=== PATIENT | female | born 1995 | race Caucasian/White ===

== ENCOUNTER 2016-08-10 02:10 | Inpatient (IN) | payer OTHER ==
[2016-08-10] MEDS ORDERED: BUTORPHANOL TARTRATE 1 MG/ML VIAL IVPB ONE (03:00)
[2016-08-10] MEDS ORDERED: PROMETHAZINE HCL 25 MG/1 ML VIAL IVPB ONE (03:00)
[2016-08-10] MEDS ORDERED: DEXTROSE 5%-LACTATED RINGERS 1,000 ML IV SCH (03:00)
[2016-08-10] MEDS ORDERED: AMPICILLIN 2 GM/100 ML BAG (PRE-DOCKED) IVPB ONE (03:00)
[2016-08-10 03:53] LABS: BASOPHIL 0.3 % (0-2.0); EOSINOPHIL 1.8 % (0-4.5); MCH 28.8 pg (25.7-33.7); MCHC 32.4 g/dl (32.0-36.0); MEAN PLT VOLUME 9.1 fl (7.5-11.1); NEUTROPHILS 74.3 % (42.8-82.8); PLATELET COUNT 250 K/MM3 (134-434); RDW 13.9 % (11.6-15.6); WHITE BLOOD COUNT 12.4 K/mm3 (4.0-10.0)
[2016-08-10 04:06] LABS: INR 0.92 (0.82-1.09); PROTHROMBIN TIME (PATIENT) 10.1 SEC (9.98-11.88)
[2016-08-10 04:08] LABS: ACTIVATED PTT 28.4 SECONDS (26.9-34.4)
[2016-08-10 04:22] LABS: CALCIUM 8.4 mg/dL (8.5-10.1); CREATININE 0.4 mg/dL (0.55-1.02)
[2016-08-10] MEDS ORDERED: DEXTROSE 5%-LACTATED RINGERS 1,000 ML IV ONE (06:34)
[2016-08-10] MEDS: AMPICILLIN (PRE-DOCKED) 1 GM/100 ML BAG IVPB SCH ×2 (07:20→11:20)
--- NOTE | 2016-08-10 09:00 | HP ---
Past Medical History - Primary Care Physician PCP:: [facility] - Admission Chief Complaint: c/o painful contractions starting at 10pm 08/09 History of Present Illness: 20 @ 39wk6d in early labor. +painful contractions q3-4 minutes, no LOF, no VB, +FM. GBS positive. Maternal blood type O+, RPR neg, Rubella Immune, HepBsAg NR, Quant Neg, HIV NR. 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: Alzheimer's, CVA, Dementia, Migraine, Multiple Sclerosis, Peripheral Neuropathy, Parkinson's, Seizure, Syncope, TIA, Vertigo, Other Cardiovascular: No: AFIB, Aneurysm, Aortic Insufficiency, Aortic Stenosis, CAD, CHF, Deep Vein Thrombosis, HTN, Hyperlipdemia, PR, Mitral Insufficiency, Mitral Stenosis, Murmur, Pulmonary Hypertension, Other Pulmonary: No: Asthma, Bronchitis, Cancer, COPD, O2 Dependent, Pneumonia, Previously Intubated, Pulmonary Embolus, Pulmonary Fibrosis, Sleep Apnea, Other Gastrointestinal: No: Ascites, Cancer, Constipation, Crohn's Disease, Diverticulitis, Diverticulosis, Esophageal Varices, Gastritis, GERD, GI Bleed, Hemorrhoids, Hiatal Hernia, Inflamatory Bowel Disease, Irritable Bowel Disease, Pancreatitis, Peptic Ulcer Disease, Ulcerative Colitis, Other Hepatobiliary: No: Cirrhosis, Cholelithiasis, Cholecystitis, Choledocholithiasis , Hepatitis A, Hepatitis B, Hepatitis C, Other Renal/: No: Renal Failure, Renal Inusuff, BPH, Cancer, Hematuria, Hemodialysis , Neurogenic Bladder, Renal Calculi, UTI, Other Reproductive: No: Ectopic , Endometriosis, Fibroids, PID, Polycystic Ovary Syndrome, Postmenopausal, Other ...: 2 ...Para: 1 ...Term: 1 ...: 0 ...Spon : 0 ...Induced : 0 ...Multiple Gestation: 0 ...LMP: 11/05/15 ... Weeks Gestation by Dates: 39.4 ...EDC by Dates: 08/13/16 ...EDC by Sono: 08/11/16 Heme/Onc: No: Anemia, B12 Deficiency, Bleeding Disorder, Cancer, Current Chemotherapy, Current Radiation Therapy, Hemochromatosis, Hypercoaguable State, Myeloproliferative Synd, Sickle Cell Disease, Sickle Cell Trait, Thrombocytopenia, Other Infectious Disease: No: AIDS, C-Diff, Herpes Zoster, HIV, MRSA, STD's, Tuberculosis, VREF, Other Psych: No: Addictions, Anxiety, Bipolar, Depression, Panic, Psychosis, Schizophrenia, Other Musculoskeletal: No: Bursitis, Chronic low back pain, Hemiparesis, Hemiplegia, Osteoarthritis, Paraplegia, Other Rheumatology: No: Fibromyalgia, Gout, Lupus, Rheumatoid Arthritis, Sarcoidosis, Vasculitis, Other Endocrine: No: Crane's Disease, Free Soil's Disease, Diabetes Insipidus, Diabetes Mellitus, Hyperparathyroidism, Hyperthyroidism, Hypothyroidism, Osteopenia, SIADH, Other Dermatology: No: Basal Cell, Cellulitis, Eczema, Melanoma, Psoriasis, Squamous Cell, Other - Past Surgical History Past Surgical History: Yes: None Hx Myomectomy: No Hx Transabdominal Cerclage: No - Smoking History Smoking history: Never smoked Aproximately how many cigarettes per day: 0 - Alcohol/Substance Use Hx Alcohol Use: No History of Substance Use: reports: None Home Medications - Allergies Allergies/Adverse Reactions: Allergies Allergy/AdvReac Type Severity Reaction Status Date / Time No Known Drug Allergies Allergy Verified 06/06/16 18:52 PEPPERS Allergy Hives Uncoded 06/06/16 18:52 - Home Medications Home Medications: Ambulatory Orders Vit/Iron Fumarate/FA [ Tablet] 1 tablet PO DAILY 06/30/16 Review of Systems - Review of Systems Constitutional: reports: No Symptoms Eyes: reports: No Symptoms HENT: reports: No Symptoms Neck: reports: No Symptoms Cardiovascular: reports: No Symptoms Respiratory: reports: No Symptoms Gastrointestinal: reports: Other (uterine contractions) Genitourinary: reports: No Symptoms Breasts: reports: No Symptoms Reported Musculoskeletal: reports: No Symptoms Integumentary: reports: No Symptoms Neurological: reports: No Symptoms Endocrine: reports: No Symptoms Hematology/Lymphatic: reports: No Symptoms Psychiatric: reports: No Symptoms Physical Exam - Maternity Vital Signs: Vital Signs Temperature 98.0 F 08/10/16 08:00 Pulse Rate 85 08/10/16 08:00 Respiratory Rate 20 08/10/16 08:00 Blood Pressure 124/80 08/10/16 08:00 O2 Sat by Pulse Oximetry (%) Constitutional: Yes: Well Nourished Eyes: Yes: WNL HENT: Yes: WNL, Atraumatic, Normocephalic Neck: Yes: WNL Cardiovascular: Yes: WNL, Regular Rate and Rhythm Lungs: Clear to auscultation Breast(s): Yes: WNL - Abdominal Exam/OB Fundal Height: 40 Number of Fetuses: Single Presentation: Vertex Contractions: Yes Regularity: Regular Intensity: Moderate Monitor Mode: External Heart Rate (range): 130 Category: I Accelerations: Uniform Decelerations: None - Vaginal Exam/OB Vaginal Bleediing: No Speculum Exam: No Dilatation (cm): 1.5 Effacement (%): 60 Amniotic Membrane Status: Intact Meconium: Light Presentation: Vertex/Position Station: -3 - Physical Exam Edema: No Integumentary: Yes: WNL Deep Tendon Reflex Grade: Normal +2 ...Motor Strength: WNL Psychiatric: Yes: WNL - Labs Lab Results: CBC, BMP 08/10/16 03:36 08/10/16 03:36 Problem List - Problems (1) 39 weeks gestation of Code(s): Z3A.39 - 39 WEEKS GESTATION OF Assessment/Plan 20 @ 39wk6d in early labor. GBS positive, intact. Feeling painful contractions q3 min. status reassuring, cat 1 FHT. VSS. AF. -Admit to L&D -[facility]/[place] -CBC/T&S -Amp for GBS ppx -anesthesia on request -anticipate
[2016-08-10] MEDS ORDERED: ELECTROLYTE-148 SOLN 1,000 ML IV SCH (09:30)
--- NOTE | 2016-08-10 09:35 | PN ---
Progress Note, Labor Vaginal Exam #1 Labor Exam Date: 08/10/16 Labor Exam Time: 08:30 Heart Rate (range): Cat 1 Dilatation: 3.5 Effacement (%): 80 Amniotic Membrane Status: Intact Presentation: Vertex/Position Station: -2 Remarks: 20 @ 39wk6d in early labor. c/o SOB and feeling diaphoretic after epidural. Assessed by anesthesia, given ephedrine for hypotension, BP 90/57. HR 97. 02 sat 100%. status reassuring, cat 1 FHT, baseline 135, +acel, no decel, + contractions q3-4 min. Getting IV Fluids. -continue to monitor -monitor vital signs -pitocin if contractions space out -anticipate
[2016-08-10] MEDS ORDERED: OXYTOCIN 15 UNITS/ LR 250 ML 250 ML IVPB SCH (09:45)
[2016-08-10] MEDS ORDERED: FENTANYL/BUPIVACAINE/NS/PF - PCEA - 50 ML DISP.SYRIN EP SCH (10:00)
--- NOTE | 2016-08-10 12:29 | PN ---
Progress Note, Labor Vaginal Exam #2 Labor Exam Date: 08/10/16 Labor Exam Time: 12:24 Heart Rate (range): Cat 1 Dilatation: 4 Effacement (%): 80 Amniotic Membrane Status: Ruptured (clear fluid) Presentation: Vertex/Position Station: -2 Remarks: 20 @ 39wk6d in early labor, on 4mu pitocin. s/p epidural, comfortable. AROM , clear fluid. Variable decel on AROM, 1 min down to 100, with spontaneous return to baseline. Overall cat 1 FHT, status reassuring. VSS. AF. -cont to monitor -titrate pitocin per protocol -anticipate
--- NOTE | 2016-08-10 13:20 | PN ---
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 Head delivered followed by body, no nuchal cord noted. 's 9/9. Placenta delivered spontaneously without difficulty. EBL 200cc.
[2016-08-10] MEDS ORDERED: BENZOCAINE 28 GM HEMORRHOIDAL OINTMENT TP PRN (13:21)
[2016-08-10] MEDS ORDERED: BISACODYL 10 MG SUPP.RECT RC PRN (13:21)
[2016-08-10] MEDS ORDERED: METHYLERGONOVINE MALEATE 0.2 MG/1 ML AMP IM PRN (13:21)
[2016-08-10] MEDS ORDERED: BENZOCAINE 20% 57 GM BOTTLE TP PRN (13:21)
[2016-08-10] MEDS ORDERED: WITCH HAZEL 50% (TUCKS) 40 PAD/JAR PAD TP PRN (13:21)
[2016-08-10] MEDS ORDERED: D5W-LR W/ 20 UNITS OXYTOCIN 1,000 ML IV SCH (13:30)
[2016-08-10] MEDS: IBUPROFEN 600 MG TABLET (FP) PO PRN ×2 (14:35→21:02)
[2016-08-10] MEDS: ACETAMINOPHEN 325 MG TABLET (FP) PO PRN ×2 (14:35→21:02)
--- NOTE | 2016-08-11 07:21 | PN ---
Post Progress Note - Subjective Subjective: Doing well, c/o mild cramps when . Ambulating, voiding, tolerating PO. Denies SOB/CP/Dizziness Type of Delivery: Vital Signs: Vital Signs Temperature 97.6 F 08/11/16 06:43 Pulse Rate 83 08/11/16 06:43 Respiratory Rate 20 08/11/16 06:43 Blood Pressure 117/69 08/11/16 06:43 O2 Sat by Pulse Oximetry (%) 100 08/10/16 13:00 Breast Exam: Yes: Soft Uterus: Yes: Fundus below umbilicus Abdomen/GI: Yes: Abdomen soft, Passing flatus Lochia: Yes: Rubra Lochia, amount: Small Extremities: Yes: Calves non-tender Perineum: Yes: Intact Activity: Ambulating - Labs Labs: CBC WBC 12.4 K/mm3 (4.0-10.0) H 08/10/16 03:36 RBC 4.12 M/mm3 (3.60-5.2) 08/10/16 03:36 Hgb 11.9 GM/dL (10.7-15.3) 08/10/16 03:36 Hct 36.7 % (32.4-45.2) 08/10/16 03:36 MCV 89.0 fl (80-96) 08/10/16 03:36 MCHC 32.4 g/dl (32.0-36.0) 08/10/16 03:36 RDW 13.9 % (11.6-15.6) 08/10/16 03:36 Plt Count 250 K/MM3 (134-434) 08/10/16 03:36 MPV 9.1 fl (7.5-11.1) 08/10/16 03:36 Neutrophils % 74.3 % (42.8-82.8) 08/10/16 03:36 Lymphocytes % 16.1 % (8-40) D 08/10/16 03:36 Monocytes % 7.5 % (3.8-10.2) 08/10/16 03:36 Eosinophils % 1.8 % (0-4.5) D 08/10/16 03:36 Basophils % 0.3 % (0-2.0) 08/10/16 03:36 Problem List - Problems (1) 39 weeks gestation of Code(s): Z3A.39 - 39 WEEKS GESTATION OF (2) Normal spontaneous vaginal delivery Code(s): O80 - ENCOUNTER FOR FULL-TERM UNCOMPLICATED DELIVERY Assessment/Plan 20P2 PPD#1 s/p , doing well . VSS, AF, Hct stable -Regular diet -ambulate -motrin prn pain -routine care -anticipate d/c PPD#2
[2016-08-11 07:28] LABS: BASOPHIL 0.3 % (0-2.0); EOSINOPHIL 1.5 % (0-4.5); MCH 30.3 pg (25.7-33.7); MCHC 33.5 g/dl (32.0-36.0); MEAN CELL VOLUME 90.4 fl (80-96); NEUTROPHILS 75.3 % (42.8-82.8); PLATELET COUNT 198 K/MM3 (134-434); RDW 14.3 % (11.6-15.6); WHITE BLOOD COUNT 12.3 K/mm3 (4.0-10.0)
[2016-08-11] MEDS ORDERED: INFLUENZA VACCINE 45 MCG/0.5 ML (MDV 16-17) IM ONE (10:00)
[2016-08-11] MEDS ORDERED: VACCINE 60 MCG/0.5 ML (P/F DISP.SYRIN 16-17) IM ONE (10:00)
[2016-08-11] MEDS ORDERED: DIPHTH,PERTUSS(ACELL),TET 0.5 ML DISP.SYRIN IM ONE (10:00)
[2016-08-11] MEDS: ACETAMINOPHEN 325 MG TABLET (FP) PO PRN ×2 (10:15→21:56)
[2016-08-11] MEDS: IBUPROFEN 600 MG TABLET (FP) PO PRN ×2 (10:15→21:56)
[2016-08-11] MEDS ORDERED: SENNOSIDES/DOCUSATE COMBO (SENNA PLUS) TABLET (UD) PO PRN (22:00)
[2016-08-12] MEDS: ACETAMINOPHEN 325 MG TABLET (FP) PO PRN (04:53)
[2016-08-12] MEDS: IBUPROFEN 600 MG TABLET (FP) PO PRN (04:54)
--- NOTE | 2016-08-12 09:49 | PN ---
Post Progress Note - Subjective Subjective: Doing well, no complaints. Denies SOB/CP/Dizziness. Tolerating regular diet, ambulating, voiding. Post Day: 2 Type of Delivery: Vital Signs: Vital Signs Temperature 97.8 F 08/11/16 22:00 Pulse Rate 88 08/11/16 22:00 Respiratory Rate 20 08/11/16 22:00 Blood Pressure 117/71 08/11/16 22:00 O2 Sat by Pulse Oximetry (%) 100 08/10/16 13:00 Breast Exam: Yes: Soft Uterus: Yes: Fundus Firm, Fundus below umbilicus Abdomen/GI: Yes: Abdomen soft, Passing flatus Lochia: Yes: Rubra Lochia, amount: Small Extremities: Yes: Calves non-tender Perineum: Yes: Intact Activity: Ambulating - Labs Labs: CBC WBC 12.3 K/mm3 (4.0-10.0) H 08/11/16 05:50 RBC 3.74 M/mm3 (3.60-5.2) 08/11/16 05:50 Hgb 11.3 GM/dL (10.7-15.3) 08/11/16 05:50 Hct 33.8 % (32.4-45.2) 08/11/16 05:50 MCV 90.4 fl (80-96) 08/11/16 05:50 MCHC 33.5 g/dl (32.0-36.0) 08/11/16 05:50 RDW 14.3 % (11.6-15.6) 08/11/16 05:50 Plt Count 198 K/MM3 (134-434) D 08/11/16 05:50 MPV 9.0 fl (7.5-11.1) 08/11/16 05:50 Neutrophils % 75.3 % (42.8-82.8) 08/11/16 05:50 Lymphocytes % 16.4 % (8-40) 08/11/16 05:50 Monocytes % 6.5 % (3.8-10.2) 08/11/16 05:50 Eosinophils % 1.5 % (0-4.5) 08/11/16 05:50 Basophils % 0.3 % (0-2.0) 08/11/16 05:50 Problem List - Problems (1) 39 weeks gestation of Code(s): Z3A.39 - 39 WEEKS GESTATION OF (2) Normal spontaneous vaginal delivery Code(s): O80 - ENCOUNTER FOR FULL-TERM UNCOMPLICATED DELIVERY Assessment/Plan 20P2 PPD#2 s/p , doing well . VSS, AF, Hct stable -Regular diet -ambulate -motrin prn pain -routine care -d/c home today
--- NOTE | 2016-08-12 09:50 | DS ---
Physical Exam-STAFFING PROGRAM MANAGER Vital Signs: Vital Signs Temperature 97.8 F 08/11/16 22:00 Pulse Rate 88 08/11/16 22:00 Respiratory Rate 20 08/11/16 22:00 Blood Pressure 117/71 08/11/16 22:00 O2 Sat by Pulse Oximetry (%) 100 08/10/16 13:00 Constitutional: Yes: Well Nourished Eyes: Yes: WNL HENT: Yes: WNL, Atraumatic, Normocephalic Neck: Yes: WNL Cardiovascular: Yes: WNL, Regular Rate and Rhythm Respiratory: Yes: WNL, Regular, CTA Bilaterally Gastrointestinal: Yes: WNL ...Rectal Exam: Yes: WNL Renal/: Yes: WNL Pelvis: Yes: WNL External Genitalia: Yes: Normal Uterus: Yes: Normal ....Post : Yes: Uterus firm, Uterus non-tender Extremities: Yes: WNL Edema: No Integumentary: Yes: WNL Neurological: Yes: WNL Labs: CBC, BMP 08/11/16 05:50 08/10/16 03:36 Delivery - Delivery Vaginal Delivery: No Problems Type of Anesthesia: Epidural Episiotomy/Laceration: None EBL (cc): 200 Delivery, Single - Stages of Labor Date 1st Stage Initiatied: 08/09/16 Time 1st Stage Initiated: 22:00 Date 2nd Stage Initiated: 08/10/16 Time 2nd Stage Initiated: 12:55 Date of Delivery: 08/10/16 Time of Delivery: 13:02 Time Placenta Delivered: 13:10 Placenta: Yes: Spontaneous - Condition of Topographical Engineer/Med Surg Rn Present: No Infant Gender: Female Weight: 6 lb 12 oz Position: Right, OA Total Hours ROM (Hrs/Mins): 50MIN - 1 Minute Total Score: 9 5 Minutes Total Score: 9 - [place] Feeding Plan Initial Plan: Exclusive throughout hospitalization Remarks - Remarks Remarks: Live famale delivered in the JODIE position over intact perineum. Head delivered followed by body, no nuchal cord noted. 's 9/9. Placenta delivered spontaneously without difficulty. EBL 200cc. course uneventful. Discharged home PPD#2, with follow up in the clinic at [address] [place] [address] in 6 weeks Discharge Summary Reason For Visit: LABOR ADMIT Current Active Problems 39 weeks gestation of (Acute) Normal spontaneous vaginal delivery (Acute) Condition: Good - Instructions Diet, Activity, Other Instructions: Post Instructions DIET: Continue good diet high in protein, calcium, and iron rich foods. Drink at least eight (8) glasses of water daily in addition to other fluids. ___ Regular diet MEDICATIONS: Continue vitamins and iron as previously directed. Motrin and Tylenol may be taken for minor discomfort. ACTIVITY: Mild to moderate exercise may be started in two (2) weeks. Take frequent rest periods. Resume normal activity after six (6) week check up. WOUND CARE OF OPERATIVE SITE: Continue use of perineal bottle until vaginal discharge stops. Keep area clean. Shower daily. Keep abdominal wound dry. Report any drainage or redness to physician. Tub baths, tampons and douches are not permitted for 6 weeks. ____ Breast feeding ___ Bottle feeding BREAST CARE: (For those that are not ): If engorgement occurs: Wear tight fitting bra. Take Tylenol or Motrin for pain. Apply cold packs (ice in bags to each breast ) FAMILY PLANNING: There are many control alternatives to pursue and they should be discussed at your first office visit. You may resume sexual activity after your six (6) week check up. (Remember, is not a contraceptive) NEXT PHYSICIAN APPOINTMENT: Be certain to call [facility] Care for a six (6) week appointment. Call Clinic or got to Emergency Dept if you have any of the following: Heavy vaginal bleeding Painful urination Leg pain Unusual odor noted to vaginal bleeding High fever Red streaking noted on breast Referrals: Emelyn Rose MD [Staff Physician] - Disposition: HOME - Home Medications Comprehensive Discharge Medication List: Ambulatory Orders Vit/Iron Fumarate/FA [ Tablet] 1 tablet PO DAILY 06/30/16
[2016-08-12 10:58] VITALS: BP 100/64; PULSE 78; TEMP 98
== END 2016-08-12 13:00 | disposition home or self-care (01) | DRG 560 ==
LOC: JDEL 02:10 → JLDR 03:00 → J3W 15:00
PROVIDERS: ADMIT Obstetrics & Gynecology; ATTEND Obstetrics & Gynecology
PROC: 10E0XZZ Delivery of Products of Conception, External Approach (ICD-10-PCS; principal; 2016-08-10)
DX: O76 Abnormality in fetal heart rate and rhythm complicating labor and delivery (principal); O99.824 Streptococcus B carrier state complicating childbirth; Z3A.39 39 weeks gestation of pregnancy; Z37.0 Single live birth
CPT/HCPCS: 36415; 59409; 80048; 85025; 85610; 85730; 86593; 86850; 86900; 86901; 90661; 90715; G0008

== ENCOUNTER 2016-12-13 20:33 | Emergency (ER) | payer OTHER ==
[2016-12-13 21:00] VITALS: TEMP 98; BMI 30.4
[2016-12-13 22:13] LABS: BASOPHIL 0.5 % (0-2.0); MCH 28.2 pg (25.7-33.7); MCHC 32.8 g/dl (32.0-36.0); MEAN CELL VOLUME 86.1 fl (80-96); MEAN PLT VOLUME 8.7 fl (7.5-11.1); PLATELET COUNT 309 K/MM3 (134-434); WHITE BLOOD COUNT 9.9 K/mm3 (4.0-10.0)
[2016-12-13 22:26] LABS: URINE APPEARANCE SLCLOUDY; URINE BILIRUBIN NEGATIVE (NEGATIVE); URINE COLOR YELLOW; URINE GLUCOSE (UA) NEGATIVE (NEGATIVE); URINE KETONE TRACE (NEGATIVE); URINE NITRITE POSITIVE (NEGATIVE); URINE PROTEIN NEGATIVE (NEGATIVE); URINE UROBILINOGEN NEGATIVE E.U./dl (0.2-1.0)
[2016-12-13 22:33] LABS: URINE BLOOD 3+ (NEGATIVE); URINE LEUK ESTERASE 2+ (NEGATIVE)
--- NOTE | 2016-12-13 22:33 | PDOC ---
History of Present Illness - General History Source: Patient Exam Limitations: No Limitations - History of Present Illness Initial Comments: 12/13/16 22:35 The patient is a 21 year old female with no significant past medical history who presents to the ED for vaginal bleeding prior to arrival. Patient reports in October she had an where she was given 2 pills (unsure of name) and at that time she was 7 weeks . 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 At that time, she had an IUD placed. Patient reports spotting over the past month. However, today she noted bloody discharge, describes as passing tissue, after using the bathroom. She also has complaints of mild suprpubic pain, but not nausea, vomiting, or diarrhea. The patient denies fever, chills, cough, SOB, chest pain, and palpitations. The patient denies dysuria, hematuria, urgency, and frequency. Allergies: NKDA Social History: No alcohol, tobacco, or drug use reported. Past Surgical History: None reported PCP: Dr. Melissa Fermin <Miroslava Root - Last Filed: 12/13/16 22:37> - General History Source: Patient <AristeoCody talley - Last Filed: 12/13/16 23:37> - General Chief Complaint: Vaginal Bleeding Stated Complaint: POSSIBLE MISCARRIAGE Time Seen by Provider: 12/13/16 21:13 Past History <Miroslava Root - Last Filed: 12/13/16 22:37> - Past Medical History Asthma: No Cancer: No Cardiac Disorders: No Diabetes: No HTN: No Suicide Attempt (Hx): No Seizures: No Thyroid Disease: No - Reproductive History (#): 3 Para: 1 Therapeutic (s) & number: Yes (10/23/2016) - Psycho/Social/Smoking Cessation Hx Anxiety: No Suicidal Ideation: No Smoking Status: No Smoking History: Never smoked Number of Cigarettes Smoked Daily: 0 Hx Alcohol Use: No Drug/Substance Use Hx: No Substance Use Type: None Hx Substance Use Treatment: No <Cody Ness - Last Filed: 12/13/16 23:37> - Past Medical History Allergies/Adverse Reactions: Allergies Allergy/AdvReac Type Severity Reaction Status Date / Time No Known Drug Allergies Allergy Verified 12/13/16 20:54 PEPPERS Allergy Hives Uncoded 12/13/16 20:54 Home Medications: Ambulatory Orders Levofloxacin [Levaquin -] 500 mg PO DAILY #7 tablet 12/13/16 Review of Systems - Review of Systems Able to Perform ROS?: Yes Comments:: 12/13/16 22:35 CONSTITUTIONAL: Absent: fever, no chills, no fatigue EYES: Absent: visual changes ENT: Absent: ear pain, no sore throat CARDIOVASCULAR: Absent: chest pain, no palpitations RESPIRATORY: Absent: cough, no SOB GI: +suprapubic pain Absent: no nausea, no vomiting, no constipation, no diarrhea GENITOURINARY: +vaginal bleeding Absent: dysuria, no frequency, no hematuria MUSCULOSKELETAL: Absent: back pain, no arthralgia, no myalgia SKIN: Absent: rash NEURO: Absent: headache <Miroslava Root - Last Filed: 12/13/16 22:37> *Physical Exam - Vital Signs Last Vital Signs Temp Pulse Resp BP Pulse Ox 98 F 62 14 127/59 100 12/13/16 20:52 12/13/16 20:52 12/13/16 20:52 12/13/16 20:52 12/13/16 20:52 - Physical Exam Comments: 12/13/16 22:35 GENERAL: Well-appearing, well-nourished. No apparent distress. HEENT: Normocephalic, atraumatic. PERRL, EOM intact. CARDIOVASCULAR: Normal S1, S2. Regular rate and rhythm. PULMONARY: Clear to auscultation bilaterally. ABDOMEN: Soft, non-distended, non-tender. No rebound or guarding. PELVIC: Deferred to pelvic ultrasound. EXTREMITIES: Normal ROM in all four extremities. No gross deformities. SKIN: Warm, dry. No rash NEUROLOGICAL: No focal neurological deficits. <Miroslava Root - Last Filed: 12/13/16 22:37> - Vital Signs Last Vital Signs Temp Pulse Resp BP Pulse Ox 98 F 62 14 127/59 100 12/13/16 20:52 12/13/16 20:52 12/13/16 20:52 12/13/16 20:52 12/13/16 20:52 <Cody Ness - Last Filed: 12/13/16 23:37> ED Treatment Course - LABORATORY CBC & Chemistry Diagram: 12/13/16 21:34 12/13/16 21:34 - ADDITIONAL ORDERS Additional order review: Laboratory Results 12/13/16 21:40 Urine Color Yellow Urine Appearance Slcloudy Urine pH 5.0 Urine Protein Negative Urine Glucose (UA) Negative Urine Ketones Trace H Urine Blood 3+ H Urine Nitrite Positive Urine Bilirubin Negative Urine Urobilinogen Negative Ur Leukocyte Esterase 2+ H Urine HCG, Qual Negative 12/13/16 21:34 RBC 4.56 D MCV 86.1 MCHC 32.8 RDW 13.0 MPV 8.7 Neutrophils % 68.0 Lymphocytes % 22.1 D Monocytes % 7.4 Eosinophils % 2.0 Basophils % 0.5 <Miroslava Root - Last Filed: 12/13/16 22:37> - LABORATORY CBC & Chemistry Diagram: 12/13/16 21:34 12/13/16 21:34 - ADDITIONAL ORDERS Additional order review: Laboratory Results 12/13/16 21:40 Urine HCG, Qual Negative 12/13/16 21:34 RBC 4.56 D MCV 86.1 MCHC 32.8 RDW 13.0 MPV 8.7 Neutrophils % 68.0 Lymphocytes % 22.1 D Monocytes % 7.4 Eosinophils % 2.0 Basophils % 0.5 - RADIOLOGY Radiology Studies Ordered: Category Date Time Status TRANSVAGINAL US PREG [US] Stat Ultrasound 12/13/16 21:35 Ordered <Cody Ness - Last Filed: 12/13/16 23:37> Medical Decision Making - Medical Decision Making 12/13/16 23:37 Dr. Ness: The scribe's documentation has been prepared under my direction and personally reviewed by me in its entirery. I confirm that the note above accurately reflects all work, treatment, procedures, and medical decision making performed by me. <Cody Ness - Last Filed: 12/13/16 23:37> *DC/Admit/Observation/Transfer - Attestations Scribe Attestion: 12/13/16 22:36 Documentation prepared by Miroslava Root, acting as vp medical for Cody Ness MD/DO. <Miroslava Root - Last Filed: 12/13/16 22:37> - Discharge Dispostion Admit: No <Cody Ness - Last Filed: 12/13/16 23:37> Diagnosis at time of Disposition: Patient currently UTI (urinary tract infection) Qualifiers: Urinary tract infection type: site unspecified Hematuria presence: without hematuria Qualified Code(s): N39.0 - Urinary tract infection, site not specified - Discharge Dispostion Disposition: HOME Condition at time of disposition: Stable - Prescriptions Prescriptions: Levofloxacin [Levaquin -] 500 mg PO DAILY #7 tablet - Referrals Referrals: Melissa Fermin [Primary Care Provider] - - Patient Instructions Printed Discharge Instructions: DI for Urinary Tract Infection (UTI) Additional Instructions: Please follow up with your vp of global marketing in two days to check blood hormone level.
[2016-12-13 22:34] LABS: URINE BACTERIA RARE /hpf (NONE SEEN); URINE MUCUS MANY; URINE RBC 77 /hpf (0-3); URINE WBC 145 /hpf (3-5)
[2016-12-13 22:50] LABS: ALBUMIN 4.3 g/dl (3.4-5.0); ANION GAP 8 (8-16); CALCIUM 8.9 mg/dL (8.5-10.1); CO2 28 mmol/L (21-32); COCKROFT - GAULT 137.4535; CREATININE 0.7 mg/dL (0.55-1.02); GLUCOSE,RANDOM 86 mg/dL (74-106); SGOT/AST 11 U/L (15-37); SGPT/ALT 18 U/L (12-78)
[2016-12-13 22:53] LABS: ALK PHOS 95 U/L (45-117); BILIRUBIN,TOTAL 0.7 mg/dL (0.2-1.0)
[2016-12-13] MEDS ORDERED: LEVOFLOXACIN 500 MG TABLET (FP) PO ONE (23:35)
[2016-12-13] MEDS ORDERED: LEVOFLOXACIN 500 MG TABLET (FP) ONE (23:54)
[2016-12-14 00:17] VITALS: BP 120/74; PULSE 78
--- NOTE | 2016-12-17 10:35 | PATH ---
Surgical Pathology Report Patient Name: EMANI MADRID [facility]. Rec. #: [id number] /Age/Gender: 1995 (Age: 21) / F Account: [id number] Location: EMERGENCY ROOM Taken: 12/13/2016 Received: 12/14/2016 Reported: 12/17/2016 Physicians: Percy Encarnacion M.D. Specimen(s) Received PRODUCTS OF CONCEPTION Clinical History Spontaneous expulsion of products of conception Final Diagnosis UTERINE CONTENTS, EVACUATION: CHORIONIC VILLI CONSISTENT WITH PRODUCTS OF CONCEPTION, ALONG WITH CLOTTED BLOOD AND PORTIONS OF DECIDUA. Electronically Signed Dano Olivera M.D. Gross Description Received in formalin labeled with the patient's name and indicated on the requisition to be products of conception, is a 2.7 x 1.3 x 1.1 cm partida-brown, irregular portion of soft tissue. No definite villous tissue or somatic tissue is identified. The specimen is serially sectioned and entirely submitted in 3 cassettes. 12/14/2016 [facility]12/14/2016
== END 2016-12-13 23:45 | disposition home or self-care (01) ==
LOC: JER 20:33
DX: N39.0 Urinary tract infection, site not specified (principal)
CPT/HCPCS: 36415; 76830-TC; 80053; 81003; 81015; 84702; 84703; 85025; 86850; 86900; 86901; 88305-TC; 99281-25

== ENCOUNTER 2017-09-25 13:12 | Emergency (ER) | payer OTHER ==
[2017-09-25 13:28] VITALS: BP 111/75; PULSE 124; TEMP 102.6; BMI 28.8
[2017-09-25] MEDS ORDERED: IBUPROFEN 400 MG TABLET (FP) PO ONE ×2 (14:14→14:21)
[2017-09-25] MEDS ORDERED: ACETAMINOPHEN 500 MG TABLET (FP) PO ONE (14:32)
[2017-09-25] MEDS ORDERED: ONDANSETRON *ODT* 4 MG TABLET SL ONE (14:36)
--- NOTE | 2017-09-25 14:46 | PDOC ---
History of Present Illness - General Chief Complaint: Cold Symptoms Stated Complaint: BODYACHES, LOSS OF APPETITE, NAUSEA Time Seen by Provider: 09/25/17 14:20 History Source: Patient Exam Limitations: No Limitations - History of Present Illness Initial Comments: 09/25/17 14:41 21 yr female with 1 day fever, chills, body aches nasal congestion nasuea no abd pain or diarrhea history of gallbladder sludge, states she can't take motrin. Past History - Past Medical History Allergies/Adverse Reactions: Allergies Allergy/AdvReac Type Severity Reaction Status Date / Time No Known Drug Allergies Allergy Verified 09/25/17 13:22 PEPPERS Allergy Hives Uncoded 09/25/17 13:22 Home Medications: Ambulatory Orders NK [No Known Home Medication] 09/25/17 Asthma: No Cancer: No Cardiac Disorders: No COPD: No Diabetes: No HTN: No Seizures: No Thyroid Disease: No - Reproductive History (#): 3 Para: 1 Therapeutic (s) & number: Yes (10/23/2016) - Suicide/Smoking/Psychosocial Hx Smoking Status: No Smoking History: Never smoked Have you smoked in the past 12 months: No Number of Cigarettes Smoked Daily: 0 Information on smoking cessation initiated: No Hx Alcohol Use: No Drug/Substance Use Hx: No Substance Use Type: None Hx Substance Use Treatment: No Respiratory Specific PMHX - Complaint Specific PMHX Angina: No Bronchitis: No Pneumonia: No Pulmonary Embolus: No TB (Tuberculosis): No Review of Systems - Review of Systems Able to Perform ROS?: Yes Is the patient limited Slovak proficient: No Constitutional: Yes: Symptoms Reported, Fever HEENTM: Yes: Nose Congestion Respiratory: Yes: Cough ABD/GI: Yes: Nausea *Physical Exam - Vital Signs Last Vital Signs Temp Pulse Resp BP Pulse Ox 102.6 F H 124 H 20 111/75 100 09/25/17 13:24 09/25/17 13:24 09/25/17 13:24 09/25/17 13:24 09/25/17 13:24 - Physical Exam General Appearance: Yes: Nourished, Appropriately Dressed HEENT: positive: EOMI, LINDA, Nasal Congestion. negative: Pharyngeal Erythema Neck: positive: Supple. negative: Lymphadenopathy (R), Lymphadenopathy (L) Respiratory/Chest: positive: Lungs Clear, Normal Breath Sounds Cardiovascular: positive: Regular Rate, Tachycardia (fever) Gastrointestinal/Abdominal: positive: Normal Bowel Sounds, Soft. negative: Tender Lymphatic: negative: Adenopathy Musculoskeletal: positive: Normal Inspection Extremity: positive: Normal Capillary Refill, Normal Inspection, Normal Range of Motion Integumentary: positive: Normal Color, Dry, Warm Neurologic: positive: registered nurse supervisor II-XII NML intact, Fully Oriented, Alert, Normal Mood/ Affect, Normal Response, Motor Strength 12/14 ED Treatment Course - Medications Given in the ED: ED Medications Discontinued Medications Generic Name Dose Route Start Last Admin Trade Name Eric PRN Reason Stop Dose Admin Ibuprofen 800 mg 09/25/17 14:14 09/25/17 14:25 Motrin - PO 09/25/17 14:15 Not Given ONCE ONE Medical Decision Making - Medical Decision Making 09/25/17 14:46 cc: fever, nasal congestion , body aches and nausea started last night neg abd pain neg urianry dyscomfort will give zofran and tylenol dc home flu like illness *DC/Admit/Observation/Transfer Diagnosis at time of Disposition: Flu-like symptoms - Discharge Dispostion Disposition: HOME Condition at time of disposition: Good - Referrals Referrals: Melissa Fermin [Primary Care Provider] - - Patient Instructions Printed Discharge Instructions: DI for Influenza -- Adult Additional Instructions: stay home and rest until your fever and your symptoms have resolved you are very contagious wear a mask at home around your family wash hands often drink pleanty of clear fluids, ice pops, jello broth soup clear fluids to stay hydrated. take tylenol 1000mg every 6hrs for fever follow with your doctor if not improving in 1 week Return to ER if you have any other concerning or worsening symptoms - Post Discharge Activity
[2017-09-25] MEDS ORDERED: ONDANSETRON *ODT* 4 MG TABLET ONE (14:47)
[2017-09-25] MEDS ORDERED: ACETAMINOPHEN 500 MG TABLET (FP) ONE (14:47)
== END 2017-09-25 14:57 | disposition home or self-care (01) ==
LOC: JERFT 13:12
DX: J11.1 Influenza due to unidentified influenza virus with other respiratory manifestations (principal)
CPT/HCPCS: 99281-25

== ENCOUNTER 2021-08-02 12:15 | Emergency (ER) | payer OTHER ==
[2021-08-02 13:38] VITALS: BP 113/67; PULSE 125; TEMP 101.8; BMI 25.4
[2021-08-02] MEDS ORDERED: SODIUM CHLORIDE 1,000 ML IV STA (14:35)
[2021-08-02] MEDS ORDERED: ACETAMINOPHEN 1000 MG/100 ML VIAL IVPB ONE (14:35)
[2021-08-02] MEDS ORDERED: METOCLOPRAMIDE HCL INJECTION 10 MG/2 ML VIAL IVPB ONE (14:35)
[2021-08-02] MEDS ORDERED: ALBUTEROL SO4 HFA INHALER IH ONE ×2 (14:36→15:28)
[2021-08-02] MEDS ORDERED: ACETAMINOPHEN INJECTION 100 ML IVPB ONE (14:45)
[2021-08-02] MEDS ORDERED: METOCLOPRAMIDE HCL INJECTION 10 MG/2 ML VIAL ONE (14:46)
[2021-08-02 15:34] LABS: BASO % 0.2 % (0-2.0); EOS % 0.2 % (0-4.5); HEMATOCRIT 39.7 % (32.4-45.2); HEMOGLOBIN 13.7 GM/dL (10.7-15.3); MCH 31.2 pg (25.7-33.7); MCHC 34.4 g/dl (32.0-36.0); MEAN CELL VOLUME 90.6 fl (80-96); MONO % 14.3 % (3.8-10.2); NEUT % 80.3 % (42.8-82.8); PLATELET COUNT 219 10^3/uL (134-434); RBC 4.38 M/mm3 (3.60-5.2); RDW 12.4 % (11.6-15.6); WHITE BLOOD COUNT 5.4 K/mm3 (4.0-10.0)
[2021-08-02 15:52] LABS: CHLORIDE 107 mmol/L (98-107); SODIUM 139 mmol/L (136-145)
[2021-08-02 15:54] LABS: CALCIUM 8.7 mg/dL (8.5-10.1)
[2021-08-02 15:55] LABS: ALBUMIN 3.7 g/dl (3.4-5.0); ANION GAP 9 MMOL/L (8-16); BLOOD UREA NITROGEN 8.5 mg/dL (7-18); CO2 23 mmol/L (21-32); GLUCOSE,RANDOM 87 mg/dL (74-106)
[2021-08-02 15:58] LABS: CREATININE 0.7 mg/dL (0.55-1.3); SGOT/AST 12 U/L (15-37); SGPT/ALT 18 U/L (13-61)
[2021-08-02 15:59] LABS: TOT PROT 7.2 g/dl (6.4-8.2)
[2021-08-02 16:00] LABS: BILIRUBIN,TOTAL 0.2 mg/dL (0.2-1)
[2021-08-02 16:01] LABS: ALK PHOS 61 U/L (45-117)
== END 2021-08-02 22:31 | disposition home or self-care (01) ==
LOC: JER 12:15
PROC: 3E0333Z Introduction of Anti-inflammatory into Peripheral Vein, Percutaneous Approach (ICD-10-PCS; principal; 2021-08-02)
PROC: 3E033GC Introduction of Other Therapeutic Substance into Peripheral Vein, Percutaneous Approach (ICD-10-PCS; 2021-08-02)
PROC: 3E0337Z Introduction of Electrolytic and Water Balance Substance into Peripheral Vein, Percutaneous Approach (ICD-10-PCS; 2021-08-02)
DX: U07.1 COVID-19 (principal)
CPT/HCPCS: 36415; 71046-TC-FY; 80053; 82550; 84484; 85025; 99285-25; C9803; J0131; U0003; U0005

== ENCOUNTER 2021-12-18 01:04 | Emergency (ER) | payer OTHER ==
[2021-12-18 01:14] VITALS: BP 125/82; PULSE 81; TEMP 98.3; BMI 29.8
[2021-12-18 01:54] LABS: BASO % 0.3 % (0-2.0); EOS % 2.3 % (0-4.5); HEMOGLOBIN 13.2 GM/dL (10.7-15.3); LYMPH % 13.8 % (8-40); MCH 30.9 pg (25.7-33.7); MCHC 34.6 g/dl (32.0-36.0); MEAN CELL VOLUME 89.1 fl (80-96); MEAN PLT VOLUME 7.4 fl (7.5-11.1); MONO % 6.3 % (3.8-10.2); NEUT % 77.3 % (42.8-82.8); PLATELET COUNT 235 10^3/uL (134-434); RBC 4.26 M/mm3 (3.60-5.2); RDW 13.2 % (11.6-15.6)
[2021-12-18] MEDS ORDERED: ACETAMINOPHEN 325 MG TABLET (FP) PO ONE (01:58)
[2021-12-18 02:14] LABS: CALCIUM 8.6 mg/dL (8.5-10.1)
[2021-12-18 02:15] LABS: BLOOD UREA NITROGEN 11.6 mg/dL (7-18)
[2021-12-18 02:18] LABS: CREATININE 0.4 mg/dL (0.55-1.3)
[2021-12-18 02:19] LABS: TOT PROT 6.7 g/dl (6.4-8.2)
[2021-12-18 02:20] LABS: BILIRUBIN,TOTAL 0.2 mg/dL (0.2-1)
[2021-12-18] MEDS ORDERED: ACETAMINOPHEN 325 MG TABLET (FP) ONE (02:30)
[2021-12-18 02:42] LABS: PH,URINE 5.5 (5.0-8.0); URINE APPEARANCE CLEAR; URINE BILIRUBIN NEGATIVE (NEGATIVE); URINE COLOR YELLOW; URINE GLUCOSE (UA) NEGATIVE (NEGATIVE); URINE KETONE NEGATIVE (NEGATIVE); URINE LEUK ESTERASE NEGATIVE (NEGATIVE); URINE NITRITE NEGATIVE (NEGATIVE); URINE PROTEIN NEGATIVE (NEGATIVE); URINE UROBILINOGEN 0.2 mg/dL (0.2-1.0)
== END 2021-12-18 03:25 | disposition home or self-care (01) ==
LOC: JER 01:04
DX: O26.892 Other specified pregnancy related conditions, second trimester (principal); R10.32 Left lower quadrant pain; Z3A.15 15 weeks gestation of pregnancy
CPT/HCPCS: 36415; 76815-TC; 80053; 81003; 84702; 85025; 86850; 86900; 86901; 87086; 99284-25

== ENCOUNTER 2022-06-01 | Inpatient (IN) | payer OTHER ==
[2022-06-01] MEDS ORDERED: OXYTOCIN 15 UNITS/ LR 250 ML 15 UNIT/250 ML INFUS.BAG IVPB SCH (00:45)
[2022-06-01] MEDS: ELECTROLYTE-148 SOLN 1,000 ML IV SCH ×4 (00:50→06:17)
[2022-06-01] MEDS ORDERED: FENTANYL/BUPIVACAINE/NS/PF - PCEA - 50 ML DISP.SYRIN EP ONE ×2 (01:05→05:51)
[2022-06-01 01:12] LABS: BASO % 0.5 % (0-2.0); EOS % 2.3 % (0-4.5); HEMOGLOBIN 12.1 GM/dL (10.7-15.3); LYMPH % 25.3 % (8-40); MCH 30.8 pg (25.7-33.7); MCHC 34.7 g/dl (32.0-36.0); MEAN CELL VOLUME 88.8 fl (80-96); MEAN PLT VOLUME 8.1 fl (7.5-11.1); MONO % 8.6 % (3.8-10.2); NEUT % 63.3 % (42.8-82.8); PLATELET COUNT 235 10^3/uL (134-434); RBC 3.94 M/mm3 (3.60-5.2); WHITE BLOOD COUNT 8.9 K/mm3 (4.0-10.0)
[2022-06-01 01:19] LABS: INR 0.94 (0.83-1.09); PROTHROMBIN TIME (PATIENT) 10.8 SEC (9.7-13.0)
[2022-06-01 01:22] LABS: ACTIVATED PTT 26.8 SECONDS (25.2-36.5)
[2022-06-01 01:23] VITALS: BMI 33.2
[2022-06-01 01:31] LABS: CALCIUM 8.5 mg/dL (8.5-10.1)
[2022-06-01 01:33] LABS: BLOOD UREA NITROGEN 6.6 mg/dL (7-18)
[2022-06-01 01:36] LABS: CREATININE 0.4 mg/dL (0.55-1.3)
[2022-06-01] MEDS ORDERED: NALOXONE HCL 0.4 MG/ML VIAL IVPUSH PRN (01:40)
[2022-06-01] MEDS ORDERED: BUPIVACAINE HCL/PF 0.25% (2.5MG/ML) 10 ML VIAL ONE (01:42)
[2022-06-01] MEDS: FENTANYL/BUPIVACAINE/NS/PF - PCEA - 50 ML DISP.SYRIN EP SCH ×2 (02:00→06:00)
[2022-06-01] MEDS ORDERED: CITRIC ACID/SODIUM CITRATE 30 ML UNIT-DOSE CUP PO ONE (03:10)
[2022-06-01] MEDS ORDERED: OXYTOCIN 20 UNITS in 0.9% NS 20 UNIT/1,000 ML INFUS.BAG IV ONE ×2 (05:25→08:20)
[2022-06-01] MEDS ORDERED: BENZOCAINE 28 GM HEMORRHOIDAL OINTMENT TP PRN (07:02)
[2022-06-01] MEDS ORDERED: BISACODYL 10 MG SUPP.RECT RC PRN (07:02)
[2022-06-01] MEDS ORDERED: METHYLERGONOVINE MALEATE 0.2 MG/1 ML AMP IM PRN (07:02)
[2022-06-01] MEDS ORDERED: oxyCODONE HCL 5 MG TABLET PO PRN (07:02)
[2022-06-01] MEDS ORDERED: WITCH HAZEL 50% (TUCKS) 40 PAD/JAR PAD TP PRN (07:02)
[2022-06-01] MEDS ORDERED: BENZOCAINE 20% 57 GM BOTTLE TP PRN (07:02)
[2022-06-01] MEDS ORDERED: ACETAMINOPHEN 325 MG TABLET (FP) PO PRN (07:02)
[2022-06-01] MEDS ORDERED: METHYLERGONOVINE MALEATE 0.2 MG/1 ML AMP IM ONE (07:03)
[2022-06-01] MEDS ORDERED: OXYTOCIN 20 UNITS in 0.9% NS 20 UNIT/1,000 ML INFUS.BAG IV SCH (07:15)
[2022-06-01 07:29] LABS: CORD BASE EXCESS -3.2 mmol/L (0-2); CORD HCO3 25.9 mmHg (20-29); CORD PCO2 64.9 mmHg (30-78); CORD pH 7.219 (7.14-7.44)
[2022-06-01 07:36] LABS: CORD BASE EXCESS -4.7 mmol/L (0-2); CORD HCO3 22.6 mmHg (20-29); CORD PCO2 50.1 mmHg (30-78); CORD pH 7.272 (7.14-7.44)
[2022-06-01] MEDS ORDERED: ACETAMINOPHEN 325 MG TABLET (FP) ONE (14:14)
[2022-06-01] MEDS: IBUPROFEN 600 MG TABLET (FP) PO PRN (20:54)
[2022-06-02] MEDS: IBUPROFEN 600 MG TABLET (FP) PO PRN ×2 (05:53→20:56)
[2022-06-02 08:07] LABS: BASO % 0.3 % (0-2.0); EOS % 2.8 % (0-4.5); HEMATOCRIT 30.2 % (32.4-45.2); HEMOGLOBIN 10.2 GM/dL (10.7-15.3); LYMPH % 21.6 % (8-40); MCH 30.3 pg (25.7-33.7); MCHC 33.8 g/dl (32.0-36.0); MEAN CELL VOLUME 89.7 fl (80-96); MEAN PLT VOLUME 8.6 fl (7.5-11.1); MONO % 7.1 % (3.8-10.2); NEUT % 68.2 % (42.8-82.8); PLATELET COUNT 188 10^3/uL (134-434); RBC 3.37 M/mm3 (3.60-5.2); RDW 14.1 % (11.6-15.6); WHITE BLOOD COUNT 9.2 K/mm3 (4.0-10.0)
[2022-06-02] MEDS ORDERED: SENNOSIDES/DOCUSATE COMBO (SENNA PLUS) TABLET (UD) PO PRN (22:00)
[2022-06-03] MEDS: IBUPROFEN 600 MG TABLET (FP) PO PRN (09:33)
[2022-06-03 11:16] VITALS: BP 105/70; PULSE 80; RESP 18; TEMP 98
== END 2022-06-03 16:15 | disposition home or self-care (01) | DRG 560 ==
LOC: JLDR → J3W 14:40
PROVIDERS: ADMIT Obstetrics & Gynecology; ATTEND Obstetrics & Gynecology
PROC: 10E0XZZ Delivery of Products of Conception, External Approach (ICD-10-PCS; principal; 2022-06-01)
DX: O80 Encounter for full-term uncomplicated delivery (principal); Z37.0 Single live birth; Z3A.38 38 weeks gestation of pregnancy
CPT/HCPCS: 36415; 36600; 59409; 80048; 82803; 85025; 85610; 85730; 86780; 86850; 86900; 86901; C9803-CS; U0003; U0005

== ENCOUNTER 2023-08-11 00:05 | Emergency (ER) | payer OTHER ==
[2023-08-11 00:10] VITALS: BP 116/70; PULSE 95; RESP 18; TEMP 98.1; BMI 30.2
[2023-08-11] MEDS ORDERED: IBUPROFEN 400 MG TABLET (FP) PO ONE (05:05)
== END 2023-08-11 06:05 | disposition home or self-care (01) ==
LOC: JER 00:05
DX: S93.401A Sprain of unspecified ligament of right ankle, initial encounter (principal); S66.911A Strain of unspecified muscle, fascia and tendon at wrist and hand level, right hand, initial encounter; W10.8XXA Fall (on) (from) other stairs and steps, initial encounter
CPT/HCPCS: 73610-TC-RT-FY; 73630-TC-RT-FY; 99283-25